=== PATIENT | female | born 2005 | race Two or more races ===

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

== ENCOUNTER 2025-08-31 10:46 | Outpatient (AMB) | payer BC, OTHER, SELFPAY ==
--- NOTE | 2025-08-31 10:47 | A.OFFPC_ITS ---
Vital Signs 08/31/25 10:53 Height 5 ft 1.5 in Weight 128 lb 2 oz BMI 23.8 BP 110/66 Blood Pressure Location Lt brachial Position Sitting Respiration 12 Pulse 93 Pulse Source Pulse Oximeter Temp 97.5 F Temp Source Oral Pulse Oximetry (%) 99 Oxygen Delivery Method Room Air Intake Visit Reasons: PERFUMER-Annual pe Intake Note: New patient to establish care and cpe. Inspection Engineer Required: No Allergies No Known Allergies Allergy (Verified 08/31/25 11:07) Medication List - Last Reconciled 08/31/25 [facility] No Known Home Meds Tobacco use date assessed: 08/31/25 Dental Screening Dental Screen Date: 08/31/25 Did you have a dental visit in the last 12 months?: No Did you have a dental problem in the last 6 months where you did not have access to dental care?: No Was dental information given to patient?: Patient has dentist HPI HPI Comments History of Present Illness Details 19 y/o F with Iron def anemia, nasal sara yps, allergic rhinitis, acne s/p adenoidectomy Fhx: Mom alive and well; Dad unsure; 2 sisters alive and well. MGM heart dz; MGF etoh; Unsure about paternal grandparents. 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 Limited Pedi records [facility] reviewed Iron Deficiency Anemia: - The patient has a past medical history of iron deficiency anemia. - Laboratory tests performed about a yea r ago revealed low hemoglobin levels. - She reports a history of heavy menstru al periods, which have recently become weblogic administrator without any intervention. - Her menstrual cycles are regular, occu rring every 28 to 32 days. Ear Discomfort: - The patient experienced an ear infecti on during the summer, for which she was treated at an urgent care facility with ear drops and antibiotics. - Since the infection, she has had a per sistent sensation of moisture in her ears. - She experienced transient hearing loss during the infection, which has since resolved. - The patient reports using earplugs. Acne: - The patient reports problems with body acne and has recently experienced more frequent breakouts on her face. - She requests a prescription for a topi bryon cream that her mother uses. 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 - Employment: Works at [employer]. - Sexual History: The patient is sexuall y active with men, is in a safe sexual relationship, and denies any concerns or symptoms of sexually transmitted infections. - Family status: The patient has no chil dren. Review of Systems - Constitutional: Denies weakness or syn cope during blood draws. - Eyes: Denies loss of vision or changes in vision. - HEENT: Reports a sensation of moisture in her ears and nasal stuffiness attributed to allergies. - Genitourinary: Reports regular menstru al periods that have become weblogic administrator recently. - Integumentary: Reports acne on her bod y and face. - Gastrointestinal: Reports normal bowel function. Physical Exam General: Well developed, well nourished, in no acute distress. Appears stated age. Head: Normocephalic, atraumatic. Eyes: Pupils are equal, round and reactive to light and accommodation. Conjunctivae are clear. Scleras nonicteric bilat. Vision grossly normal. Ears: TM intact bilat, EAC clear bilat, trace fluid behind L TM Nose: Large polyps noted on L, smaller on R likely due to significant allergies. Patent, without discharge. Neck: No carotid bruit bilat. Supple, no adenopathy or thyromegaly. Breast: Edu on SBE Lungs: Clear to auscultation bilaterally. No rales, rhonchi or wheeze noted. Good air flow in all eller. Heart: Regular rate and rhythm. No murmurs, click, rubs or gallops are noted. Abdomen: Bowel sounds present in all quadrants. The abdomen is soft, nontender, with no masses or organomegaly noted. No hernias are noted. : Deferred. 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 Extremities: No clubbing, cyanosis nor edema is noted. Neurologic: Gait and station normal. Cranial Nerves 2-12 intact. Motor strength grossly symmetrical and intact. No sensory loss. Balance normal. Skin: No rashes, ulcers, or lesions noted. Turgor is good. Skin color is good. Hair and nails are without abnormalities. Mild facial acne Psych: Normal eye contact, affect and mood appropriate, and normal interactions. Patient is alert and appropriate to context. Results Pending Medical Decision Making The patient is a 19-year-old female presenting to [facility] with a few specific concerns. Her primary complaint of ear moisture following a treated ear infection, coupled with the physical exam findings of fluid behind the tympanic membranes and large nasal polyps, is most consistent with eustachian tube dysfunction secondary to significant allergic rhinitis. The initial management will be a trial of intranasal Azelastine to manage the underlying allergies, which should alleviate the ear symptoms. If this approach fails, an ENT referral for polypectomy will be considered. Given her history of low hemoglobin and past heavy menses, it is prudent to re- evaluate for iron deficiency anemia, and labs have been ordered to assess her current status. The patient also requested treatment for body and facial acne, and a topical cream was prescribed with appropriate counseling on application and side effects, including photosensitivity. Comprehensive wellness labs were ordered to establish a baseline, and she received an influenza vaccine. The plan is for routine annual follow-up, with lab results and further communication to be handled via the patient portal. Plan Health Maintenance - The patient presented to [facility] with a complete physical exam. - An influenza vaccine was administered during the visit. - Wellness labs were ordered, including a diabetes screen, iron levels, cholesterol screen, urinalysis, thyroid function tests, B12, and vitamin D levels. - The patient was advised that she requi res annual physical examinations. - Instructions were given to sign up for the patient portal to access lab results and for communication. 1. Wellness Examination - A complete physical exam was conducted . - Ordered comprehensive wellness labs, i ncluding a diabetes screen, iron levels, cholesterol screen, urinalysis for kidney function, TSH, B12, and vitamin D. - Results will be provided via the [employer] portal. - The patient was instructed to schedule a follow-up visit in one year for an annual physical. 2. Allergic Rhinitis With Nasal Polyps - The patient's sensation of ear moistur e is attributed to eustachian tube dysfunction from allergic rhinitis, as evidenced by large nasal polyps on exam. - Prescribed Azelastine nasal spray to b e used once daily in each nostril. - Advised the patient that Azelastine is available [id number] if not covered by her insurance. - If symptoms persist, a referral to an ENT specialist will be made to consider polyp removal. 3. Iron Deficiency Anemia - Due to a history of low hemoglobin, ir on levels will be assessed as part of the scheduled lab work. - Follow-up will be arranged based on laboratory results. 4. Acne - Prescribed a topical cream for body an d facial acne. - Instructed the patient to apply the cr eam sparingly to affected areas at bedtime. - Counseled on the importance of washing the cream off in the morning to prevent sun-induced skin bleaching. 5. Influenza Vaccination - An influenza vaccine was administered during the visit. Patient Instructions - A prescription for Azelastine nasal sp ray has been sent to your pharmacy; use one spray in each nostril once a day to help with your ear and nose symptoms. - If your insurance does not cover the A zelastine prescription, you can purchase it over the counter. - A prescription for an acne cream has b een sent to your pharmacy. - Apply the acne cream in a thin layer o nly on the affected areas at bedtime. - You must wash the cream off in the mor arnel before going into the sun, as it can cause your skin to bleach. - You will receive a flu shot today befo re you leave. - Please sign up for our online patient portal using the email link you will receive today. - You can view your lab results and send me messages through the portal. - I will see you back in one year for yo ur next annual physical exam, unless any issues arise sooner. Consent Verbal consent was obtained from the patient for a complete physical examination and for venipuncture for routine wellness laboratory studies. The patient also provided verbal consent for the administration of the influenza vaccine. Patient was informed and verbally consented to the use of an ambient scribe for clinic note documentation during this visit. An additional 20 minutes was spent addressing the problem(s) noted at todays visit. This includes time spent before the visit reviewing the chart, time spent during the visit, and time spent after the visit on documentation reviewing laboratory results, diagnostic imaging, medications, performing a medically necessary evaluation, counseling on diagnoses, care coordination, ordering appropriate tests, ordering appropriate medications, review of tests performed by other providers, reporting test results with the patient, communication with other healthcare providers. [facility] Medical History (Updated 08/31/25 @ 11:27 by Kenya Carrillo [facility]) Iron deficiency anemia Surgical History (Updated 08/31/25 @ 10:57 by Trang Umana MA) H/O adenoidectomy Family History (Updated 08/31/25 @ 10:59 by Trang Umana MA) Mother No problems noted. Maternal Grandmother Cardiovascular disease Thyroid disorder Chronic mental illness Maternal Grandfather Cardiovascular disease Substance use disorder Chronic mental illness Social History (Updated 08/31/25 @ 10:56 by Trang Umana MA) Household Members: Family Both parents involved: Yes Caregiver staying overnight: No Housing: Apartment Are you a primary aged or disabled care worker to a significant other at home: No Do you presently have visiting nurse or other home services: No 75 years or older and lives alone: No Alcohol intake: never Patient Tobacco Use Status: Never used Tobacco e-Cigarette/Vaping Use: Never Used Second Hand Smoke Exposure: No Current occupational status: unemployed and student Cognitive needs: No Hearing needs: No Vision needs: No Questionnaire PHQ-9 Over the last 2 weeks, how often have you been bothered by any of the following problems? 1. Little interest or pleasure in doing things: not at all 2. Feeling down, depressed, or hopeless: not at all 3. Trouble falling or staying asleep, or sleeping too much: not at all 4. Feeling tired or having little energy: not at all 5. Poor appetite or overeating: not at all 6. Feeling bad about yourself - or that you are a failure or have let yourself or your family down: not at all 7. Trouble concentrating on things, such as reading the newspaper or watching television: not at all 8. Moving or speaking so slowly that other people could have noticed. Or the opposite - being so fidgety or restless that you have been moving around a lot more than usual: not at all 9. Thoughts that you would be better off or of hurting yourself in some way: not at all Total score: 0 Depression Screening Interpretation: Negative Depression Screening Done: Yes 15015 - PHQ-9 Billing: Yes Source: Developed by Drs. Jimi Shen, Mala Oates, Peter Massey and colleagues, with an educational lillian from [employer]. Thrive Questionnaire Date Thrive assessed: 08/31/25 I am a: Patient What is your living situation today?: I have a steady place to live Within the past 12 months, did the food you bought not last and you didn't have the money to get more?: Never true Within the past 12 months, did you worry whether your food would run out before you got money to buy more?: Never true Do you have trouble paying for medicines?: No Do you have trouble getting transportation to medical appointments?: No Do you have trouble paying your heating and electricity bill?: No Do you have trouble taking care of your child, family member or friend?: No Do you have trouble with day-to-day activities such as bathing, preparing meals, shopping, managing finances, etc.?: No Are you currently unemployed and looking for a job?: No Are you interested in more education?: No Please select the resources that you would like help with: None Currently or been in a relationship where the following occur: No concerns reported THRIVE Score: 0 AUDIT C Alcohol Use Questionnaire (AUDIT-C) 1. How often do you have a drink containing alcohol?: Never Total Score: 0 Score Reviewed/Action Taken: Yes JOSE MARIA-7 AMB Questionnaire JOSE MARIA-7 Date JOSE MARIA - 7 assessed: 08/31/25 Feeling nervous, anxious, or on edge: 0 = Not at all Not being able to stop or control worryin = Not at all Worrying too much about different things: 0 = Not at all Trouble relaxin = Not at all Being so restless that it is hard to sit still: 0 = Not at all Becoming easily annoyed or irritable: 0 = Not at all Feeling afraid as if something awful might happen: 0 = Not at all Total JOSE MARIA-7 score (0-4 normal; 5-9 mild; 10-14 moderate; 15-21 severe): 0 Source: Developed by Drs. Jimi Shen, Mala Oates, Peter Massey and colleagues, with an educational lillian from [employer]. JOSE MARIA-7 Assessment Billing JOSE MARIA-7 Assessment Tool: JOSE MARIA-7 Assessment 33652 Physical exam (Primary Care) Vital Signs: Last Vital Signs Temp 97.5 F 08/31/25 10:53 Pulse 93 08/31/25 10:53 Resp 12 08/31/25 10:53 BP 110/66 08/31/25 10:53 Pulse Ox 99 08/31/25 10:53 Oxygen Delivery Method Room Air 08/31/25 10:53 BMI result Body Mass Index 23.8 Tobacco/Smoking Status: Tobacco use Status Tobacco use date assessed 08/31/25 08/31/25 10:49 Patient Tobacco Use Status Never used Tobacco 08/31/25 10:56 e-Cigarette/Vaping Use Never Used 08/31/25 10:56 PHQ-9: PHQ-9 Score PHQ-9: Total score 0 08/31/25 11:07 Depression Screening Interpretation: Negative Thrive Assessment: Date of Thrive Assessment Date Thrive assessed 08/31/25 08/31/25 10:49 Currently or been in a relationship where the following occur: No concerns repo rted Office Procedures Flu Questionnaire Does the patient have a severe egg allergy?: No Does the patient have severe life threatening allergies?: No Does the patient have a fever or illness today?: No Has the patient ever had Guillain-[place] Syndrome?: No Has the patient ever had any past reaction to a flu shot?: No Immunizations Fluarix [id number] (PF) 45 mcg (15 mcg x 3)/0.5 mL IM syringe Performing Provider: KOURTNEY Cintron Performing Location: [facility] Family Medicine Administered by: Trang Umana MA on 08/31/25 11:26 Dose Route Admin Location Dispensed Lot Number Expiration Date [facility] Dot Net [employer] 0.5 mL IM Right Deltoid 0.5 mL [id number] 04/18/26 [id number] [employer] VIS Given Date VIS Provided VIS Publication Date 08/31/25 Single Vaccine 24 Eligibility Eligibility Date Funding Source Not [facility] Eligible 08/31/25 Private Coding Level of Care Code New Pt Level 2 (45787) New Pt Prev Care 18-39yr(43946 Diagnoses Encounter to establish care Z76.89 Influenza vaccination administered at current visit Z23 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.0 Iron deficiency anemia type: chronic blood loss Laboratory exam ordered as part of routine general medical examination Z00.00 Nasal polyps J33.9 Non-seasonal allergic rhinitis due to other allergic trigger J30.89 Allergic rhinitis seasonality: non-seasonal Allergic rhinitis trigger: other Recurrent acute allergic otitis media of left ear H65.115 Chronicity: acute Recurrence: recurrent Adult general medical exam Z00.00 Additional Codes JOSE MARIA-7 Assessment Billing - JOSE MARIA-7 Assessment Tool: JOSE MARIA-7 Assessment 45553 ([id number]) PHQ-9 - 78317 - PHQ-9 Billing: Yes ([id number]) Assessment & Plan Assessment & Plan (1) Encounter to establish care: Code(s): Z76.89 - Persons encountering health services in other specified circumstances Category: Medical (2) Influenza vaccination administered at current visit: Onset Date: ~08/31/25 Code(s): Z23 - Encounter for immunization Category: Medical (3) Iron deficiency anemia: Code(s): D50.9 - Iron deficiency anemia, unspecified Category: Medical Qualifiers: Iron deficiency anemia type: chronic blood loss Qualified Code(s): D50.0 - Iron deficiency anemia secondary to blood loss (chronic) (4) Laboratory exam ordered as part of routine general medical examination: Code(s): Z00.00 - Encounter for general adult medical examination without abnormal findings Category: Medical (5) Nasal polyps: Code(s): J33.9 - Nasal polyp, unspecified Category: Medical (6) Allergic rhinitis: Code(s): J30.9 - Allergic rhinitis, unspecified Category: Medical Qualifiers: Allergic rhinitis seasonality: non-seasonal Allergic rhinitis trigger: other Qualified Code(s): J30.89 - Other allergic rhinitis (7) Allergic otitis media of left ear: Code(s): H65.92 - Unspecified nonsuppurative otitis media, left ear Qualifiers: Chronicity: acute Recurrence: recurrent Qualified Code(s): H65.115 - Acute and subacute allergic otitis media (mucoid) (sanguinous) (serous), recurrent, left ear (8) Adult general medical exam: Onset Date: ~08/31/25 Code(s): Z00.00 - Encounter for general adult medical examination without abnormal findings Category: Medical Plan . Orders: Orders Influenza [id number] Immunization Today Z23 - Encounter for immunization Complete Blood Count no Diff Today Z00.00 - Encounter for general adult medical examination without abnormal findings Comprehensive Met. Panel Today Z00.00 - Encounter for general adult medical examination without abnormal findings Ferritin Today Z00.00 - Encounter for general adult medical examination without abnormal findings IRON PROFILE Today Z00.00 - Encounter for general adult medical examination without abnormal findings Hemoglobin A1c Today Z00.00 - Encounter for general adult medical examination without abnormal findings Lipid Panel Today Z00.00 - Encounter for general adult medical examination without abnormal findings Microalbumin, Random (w Creat) Today Z00.00 - Encounter for general adult medical examination without abnormal findings TSH reflex Free T4 Today Z00.00 - Encounter for general adult medical examination without abnormal findings Vitamin B12 and Folate Today Z00.00 - Encounter for general adult medical examination without abnormal findings Vitamin D 25-OH Total Today Z00.00 - Encounter for general adult medical examination without abnormal findings Medications: New azelastine (Astepro Allergy) administer into each nostril 1 spray intranasal BEDTIME 30 mL 2RF tretinoin 0.025% 1 appl topical BEDTIME 45 grams 2RF Patient Instructions: Patient Instructions - A prescription for Azelastine nasal spray has been sent to your pharmacy; use one spray in each nostril once a day to help with your ear and nose symptoms. - If your insurance does not cover the Azelastine prescription, you can purchase it over the counter. - A prescription for an acne cream has been sent to your pharmacy. - Apply the acne cream in a thin layer only on the affected areas at bedtime. - You must wash the cream off in the morning before going into the sun, as it can cause your skin to bleach. - You will receive a flu shot today before you leave. - Please sign up for our online patient portal using the email link you will receive today. - You can view your lab results and send me messages through the portal. - I will see you back in one year for your next annual physical exam, unless any issues arise sooner. Walk-In Care (Urgent Care): We Make it Easy Walk-in for urgent medical issues such as: ? Seasonal Allergies ? Insect Bites ? Cough ? Diarrhea ? Acute Asthma Attacks ? Back, Knee or Joint Pain ? Ear Infection ? Fever without a Rash ? Headaches ? Nausea ? [place], Rash or Skin Irritation ? Sore Throat ? Sports Physicals ? Vomiting Most insurances are accepted. Patients do not need to be part of the [facility] to seek care at the walk-in clinic. Locations [address] [place] [address] Open Friday through Friday 8am-5pm *Hours may vary due to staffing availability. To confirm Walk-In Care hours please call. [address] [facility] , [place] [address] ? [phone] [facility] Walk-In Care in [place] provides services to ages 18 and over. Open Friday-Friday: 7 a.m. to 5 p.m. and Friday: 9 a.m. to 3 p.m.* *Hours may vary due to staffing availability. To confirm Walk-In Care hours in [place], please call [phone]. [address] [place] [address] ? [phone] [facility] Walk-In Care in [place] provides services to ages 12 and over. Open Friday-Friday: 8 a.m. to 5 p.m. Hours may vary due to staffing availability. To confirm Walk-In Care hours in [place], please call [phone]. LABORATORY SERVICES: [facility] Lab ? Primary Location [address] [place] [address] Friday through Friday 6:00 AM ? 5:00 PM Friday 7:00 AM ? 11:00 AM* [phone] The [facility] Lab is centrally located near the front entrance of the [facility] for easy outpatient access. Convenient parking is provided for outpatients. *Hours may vary due to staffing availability. To confirm Laboratory hours for any location, please call [phone]. Offsite Location For your convenience, we offer offsite laboratory draw stations at the following locations: [address] [place] [address] ? [facility] [address], [address], [place] Friday through Friday 7:30 AM ? 1:00 PM* [phone] *Hours may vary due to staffing availability. To confirm Laboratory hours for an y location, please call [phone]. [place] [address] Friday through Friday 6:00 AM ? 3:30 PM* Friday 6:30 AM ? 3 PM* [phone] *Hours may vary due to staffing availability. To confirm Laboratory hours for any location, please call [phone]. [address] [facility] Friday through Friday 7:30 AM ? 4:00 PM* [phone] *Hours may vary due to staffing availability. To confirm Laboratory hours for any location, please call [phone]. [facility] Friday through 9:00 AM ? 4:00 PM* *Hours may vary due to staffing availability. To confirm Laboratory hours for any location, please call [phone]. Appointments are not necessary. Walk-ins are welcome. Like all the departments throughout the [facility], our Lab undergoes frequent reviews to ensure the quality and accuracy of test results, and our staff takes special pride in its status as a nationally accredited facility. Patient Portal: [facility] ONE PATIENT. ONE RECORD. BETTER CARE. [facility] has a fully integrated, cutting- edge mobile electronic health information system that has revolutionized the way we care for our patients and manage our organization. This system improves communication and coordination enabling us to provide safe, higher-quality care, and an overall positive experience for staff and patients. Our first priority, as always, is to deliver the highest quality care possible. The system is running in the background supporting that priority. This portal is for all [facility] and [facility] services and practices. If you are experiencing any technical difficulties with enrolling or logging into the Patient Portal please complete the [facility] Patient Portal Technical Support Form. [facility] now offers a new secure on-line interactive tool for patients to review their health information ? ?Patient Portal. This interactive web portal will enable patients and their families to take an active role in their care by providing easy, secure access to their health information via the internet. The Patient Portal provides patients with instant access to their health information, including laboratory results, medications, allergies, demographic information, visit history, and more. In addition to managing their own care, parents and health care proxies with authorized consent will appreciate the ability to access the records of those individuals for whom they provide care. Please note: if you wish to gain access (Proxy) to another patient?s portal, you will be required to come to the Medical Records Department in person at [facility]. Both the patient giving proxy access and the proxy will need to provide photo identification and complete the appropriate authorization. The Patient Portal also allows track their appointments online. The [facility] Patient Portal also saves patients time by allowing them to submit updates to their demographic and contact information prior to their visits. Portal email notifications will also alert patients to any new activity on their portal, such as test results and new appointments. In order to initially enroll in the [facility] Patient Portal, you will need to enter some required information including the following: * your [facility] Medical Record number * your personal home email address * name * date of Please note: In order to enroll in the [facility] Patient Portal, we need to have your email address on file in your electronic medical record. ?The email address needs to be specific for one person (yourself) in order for your Portal enrollment to be successful. ?You can update your email address in person with our Registration staff when you are registering for a hospital visit. ?Otherwise, you will need to come to the Health Information Management (Medical Records) Department at [facility]. ?We are open from Friday ? Friday from 7:30 a.m. ? 4:30 p.m. ?You will be required to present a photo id. Once you have successfully enrolled in the Patient Portal, you will receive a one-time user id and password for the Portal, sent to your email address. ?This will allow you to log into the Patient Portal within 99 hrs and reset your own logon id and password, and define personal security questions. ?Once your permanent login and password have been set, you can log into the [facility] Patient Portal at any time via the blue button above or from the Portal Logon button on any page of the [facility] website. [facility] encourage all of our patients to enroll in Patient Portal as it presents a valuable opportunity for patients and their families to actively participate in their care and stay healthy Welcome to [facility]. ?We look forward to working with you. Health screenings for women You should visit your health care provider from time to time, even if you are healthy. The purpose of these visits is to: Screen for medical issues Assess your risk for future medical problems Encourage a healthy lifestyle Update vaccinations and other preventive care services Help you get to know your provider in case of an illness Information Even if you feel fine, you should still see your provider for regular checkups. These visits can help you avoid problems in the future. For example, the only way to find out if you have high blood pressure is to have it checked regularly. High blood sugar and high cholesterol levels also may not have any symptoms in the early stages. A simple blood test can check for these conditions. There are specific times when you should see your provider or receive specific health screenings. The [place] Preventive Services Task Force publishes a list of recommended screenings. Below are screening guidelines for women ages 18 to 39. BLOOD PRESSURE SCREENING Your blood pressure should be checked at least once every 3 to 5 years if: Your blood pressure is in the normal range (top number less than 120 mm Hg and bottom number less than 80 mm Hg) You don't have risk factors for high blood pressure Ask your provider if you need your blood pressure checked more often if: The top number is 120 to 129 mm Hg or the bottom number is 70 to 79 mm Hg You have diabetes, heart disease, kidney problems, are overweight, or have certain other health conditions You have a first-degree relative with high blood pressure You are Black You had high blood pressure during a If the top number is 130 mm Hg or greater or the bottom number is 80 mm Hg or greater, this is considered stage 1 hypertension. Schedule an appointment with your provider to learn how you can reduce your blood pressure. Watch for blood pressure screenings in your area. Ask your provider if you can stop in to have your blood pressure checked. BREAST CANCER SCREENING Experts do not agree about the benefits of breast self-exams in finding breast cancer or saving lives. Talk to your provider about what is best for you. A screening mammogram is not recommended for most women under age 40. Your provider may discuss and recommend mammograms, MRI scans, or ultrasounds if you have an increased risk for breast cancer, such as: A mother or sister who had breast cancer at a young age (most often starting screening earlier than the age the close relative was diagnosed) You carry a high-risk genetic marker CERVICAL CANCER SCREENING Cervical cancer screening should start at age 21 years unless your provider adv ises otherwise. After the first test: Women ages 21 through 29 should have a Pap test every 3 years. Exoprts do not agree on whether HPV testing is recommended for this age group. Women ages 30 through 65 should be screened with either a Pap test every 3 years or the HPV test every 5 years or both tests every 5 years (called cotesting ). Women who have been treated for precancer (cervical dysplasia) should continue to have Pap tests for 20 years after treatment or until age 65, whichever is longer. If you have had your uterus and cervix removed (total hysterectomy), and you have not been diagnosed with cervical cancer or precancer (high grade cervical neoplasia), you do not need cervical cancer screening. CHOLESTEROL SCREENING Cholesterol screening should begin at: Age 45 for women with no known risk factors for coronary heart disease Age 20 for women with known risk factors for coronary heart disease Repeat cholesterol screening should take place: Every 5 years for women with normal cholesterol levels More often if changes occur in lifestyle (including weight gain and diet) More often if you have diabetes, heart disease, kidney problems, or certain other conditions DIABETES SCREENING You should be screened for diabetes starting at age 35 and then repeated every 3 years if you have no risk factors for diabetes. Screening may need to start earlier and be repeated more often if you have other risk factors for diabetes, such as: You have a first degree relative with diabetes. You are overweight or have obesity. You have high blood pressure, prediabetes, or a history of heart disease. Screening for diabetes should be done if you are planning to become and you are overweight and have other risk factors such as high blood pressure. DENTAL EXAM Go to the dentist once or twice every year for an exam and cleaning. Your dentist will evaluate if you need more frequent visits. EYE EXAM Have an eye exam every 5 to 10 years before age 40. If you have vision problems, have an eye exam every 2 years or more often if recommended by your provider. You should have an eye exam that includes an examination of your retina (back of your eye) at least every year if you have diabetes. IMMUNIZATIONS Commonly needed vaccines include: Flu shot: get one every year. COVID-19 vaccine: ask your provider what is best for you. Tetanus-diphtheria and acellular pertussis (Tdap) vaccine: have one at or after age 19 as one of your tetanus-diphtheria vaccines if you did not receive it as an adolescent. Tetanus-diphtheria: have a booster (or Tdap) every 10 years. Varicella vaccine: receive 2 doses if you never had chickenpox or the varicella vaccine. Hepatitis B vaccine: receive 2, 3, or 4 doses, depending on your exact circumstances. Measles, mumps, and rubella (MMR) vaccine: receive 1 to 2 doses if you are not already immune to MMR. Your provider can tell you if you are immune. Ask your provider about the human papillomavirus (HPV) vaccine if: You have not received the HPV vaccine in the past You have not completed the full vaccine series (you should catch up on this shot) Ask your provider if you should receive other immunizations if you have certain health problems that increase your risk for some diseases such as pneumonia. INFECTIOUS DISEASE SCREENING Women who are sexually active should be screened for chlamydia and gonorrhea up until age 25. Women 25 years and older should be screened for chlamydia and gonorrhea if at high risk. Screening for hepatitis C: All adults ages 18 to 79 should get a one-time test for hepatitis C. people should be screened at every . Screening for human immunodeficiency virus (HIV): All people ages 15 to 65 should get a one-time test for HIV. Depending on your lifestyle and medical history, you may also need to be screened for infections such as syphilis and HIV, as well as other infections. PHYSICAL EXAM All adults should visit their provider from time to time, even if they are healthy. The purpose of these visits is to: Screen for disease Assess your risk of future medical problems Encourage a healthy lifestyle Update your vaccinations and other preventive care services Maintain a relationship with a provider in case of an illness Your height, weight, and BMI should be checked at every exam. During your exam, your provider may ask you about: Depression and anxiety Diet and exercise Alcohol and tobacco use Safety issues, such as using seat belts, smoke detectors, and intimate partner violence Your medicines and risk for interactions SKIN SELF-EXAM Your provider may check your skin for signs of skin cancer, especially if you're at high risk, such as if you: Have had skin cancer before Have close relatives with skin cancer Have a weakened immune system OTHER SCREENING Talk with your provider about colon cancer screening if you have a strong family history of colon cancer or polyps, or if you have had inflammatory bowel disease or polyps yourself. Routine bone density screening of women under 40 is not recommended.
[2025-08-31 10:53] VITALS: BP 110/66; PULSE 93; RESP 12; TEMP 36.4; O2SAT 99; BMI 23.8
--- OUTSIDE RECORDS SUMMARY | 2025-08-31 13:00 | XMS_ITS | Encounter Summary ---
Author Organization [facility] Address [address] [place] [id number] Phone Care Team Providers Care Personnel Quality Assurance Auditor Name Role Phone Dian Santacruz AUTOMOTIVE ENGINEERING TECHNICIAN Primary Care Provider Sharri rizo Encounter Details Date Type Department Care Team (Late st Contact Info) Description 11/18/2011 Documentation EM Family Medicine [facility] [place] [address] Family Medicine, Physician [facility] [place] [id number] Social History Tobacco Use Types Packs/Day Years Used Date Smoking Tobacco: Never Assessed Comments Unknown Sex and Gender Information Value Date Recorded Sex Assigned at Not on file Legal Sex Female 4:46 PM EDT Gender Identity Not on file Sexual Orientation Not on file documented as of this encounter Plan of Treatment Not on file documented as of this encounter Visit Diagnoses Not on filedocumented in this encounter Care Teams Personnel Quality Assurance Auditor Relationship Specialty Start Date End Date Dian Santacruz NP PCP - General 05/30/17 01/30/23 documented as of this encounter
--- OUTSIDE RECORDS SUMMARY | 2025-08-31 13:00 | XMS_ITS | Encounter Summary ---
Author Organization [facility] Address [address] [place] [address] Phone Care Team Providers Care Pricing Director Name Role Phone Dian Santacruz WORM RAISER Primary Care Provider Sharri rizo Encounter Details Date Type Department Care Team (Late st Contact Info) Description 04/27/2013 Documentation EM Family Medicine [facility] [place] [address] Family Medicine, Physician [facility] [place] [address] Social History Tobacco Use Types Packs/Day Years [...] on filedocumented in this encounter Care Teams Pricing Director Relationship Specialty Start Date End Date Dian Santacruz NP PCP - General 05/30/17 01/30/23 documented as of this encounter
--- OUTSIDE RECORDS SUMMARY | 2025-08-31 13:00 | XMS_ITS | Encounter Summary ---
Author Organization [facility] Address [address] [place] [address] Phone Care Team Providers Care Autopsy Pathologist Name Role Phone Dian Santacruz PRINTING BINDERY ASSISTANT Primary Care Provider Sharri rizo Encounter Details Date Type Department Care Team (Late st Contact Info) Description 06/12/2011 Documentation EM Family Medicine [facility] [place] [address] Family Medicine, Physician [facility] [place] [address] Social History Tobacco Use Types Packs/Day Years [...] on filedocumented in this encounter Care Teams Autopsy Pathologist Relationship Specialty Start Date End Date Dian Santacruz NP PCP - General 05/30/17 01/30/23 documented as of this encounter
--- OUTSIDE RECORDS SUMMARY | 2025-08-31 13:00 | XMS_ITS | Clinical Summary ---
Author Organization [facility] Address [address] [place] [address] Phone Care Team Providers Care Arterial Embalmer Name Role Phone Unavailable Primary Care Provider Unavailabl e Immunizations Immunization Administration Dates Next Due DTaP 2008, 6,05/21/2005,03/20/2005, 5 Hep A, ped/adol 08/25/2006,02/21/2006 Hep B, ped/adol 05/21/2005,01/18/2005,2004 Hib (HbOC) 02/21/2006,03/20/2005,01/18/2005 IPV 2008,05/21/2005,03/20/2005 ,01/18/2005 Influenza Split 09/09/2012, 1,08/04/2009,08/25/2006, 6 MMR 2008,12/11/2005 Pneumococcal Conjugate 02/21/2006,05/21/2005,10/2004,01/18/2005 Varicella 2008,12/11/2005 Family History Relation Name Status Comments Mother Alive Mother: Alive a nd well Other Family history of Asthma, Family history of Diabetes mellitus, Family history of Migraines Sister Alive Sister: Alive a nd well Social History Tobacco Use Types Packs/Day Years Used Date Smoking Tobacco: Never Assessed Comments Unknown Sex and Gender Information Value Date Recorded Sex Assigned at Not on file Legal Sex Female 4:46 PM EDT Gender Identity Not on file Sexual Orientation Not on file Last Filed Vital Signs Vital Sign Reading Time Taken Comments Blood Pressure 100/64 11/03/2012 12:00 AM EST Pulse - - Temperature 38.7 C (101.7 F) 11/03/2012 12:00 AM EST Respiratory Rate - - Oxygen Saturation - - Inhaled Oxygen Concentration - - Weight 29 kg (64 lb) 11/03/2012 12:00 AM EST Height 128.3 cm (4' 2.5 ) 11/03/2012 12:00 AM ES T Body Mass Index 17.64 11/03/2012 12:00 AM EST Plan of Treatment Health Maintenance Due Date Last Done Comments DTaP,Tdap,and Td Vaccines (6 - Tdap) 2015 2008, 02/21/2006, 05/21/2005, Additional history exists HPV Vaccines (1 - 3-dose series) 2019 Men B Vaccine (1 of 2 - Standard) 2020 Influenza Vaccines (#1) 2025 09/09/20, 06/11/2011, 08/04/2009, Additional history exists COVID-19 Vaccine ( - 2024- season) 2025 Hepatitis B Vaccines Completed 05/21/2005, 01/18/2005, 2004 HIB Vaccines Completed 02/21/2006, 10/2004, 01/18/2005 Pneumococcal Vaccine Completed 02/21/2006, 05/21/2005, 03/20/2005, Additional history exists Hepatitis A Vaccines Completed 08/25/2006, 02/22/20 IPV Vaccines Completed 2008, 11/2004, 03/20/2005, Additional history exists MMR Vaccines Completed 2008, 12/11/2005 Varicella Vaccines Completed 2008, 12/11/2005 Meningococcal Vaccine Aged Out No umer jodee eligible based on patient's age to complete this topic
--- OUTSIDE RECORDS SUMMARY | 2025-08-31 13:00 | XMS_ITS | Encounter Summary ---
Author Organization [facility] Address [address] [place] [address] Phone Care Team Providers Care Mailroom Personnel Name Role Phone Dian Santacruz DIESEL STATIONARY ENGINEER Primary Care Provider Sharri rizo Encounter Details Date Type Department Care Team (Late st Contact Info) Description 07/17/2011 Documentation EM Family Medicine [facility] [place] [address] Family Medicine, Physician [facility] [place]where [place], [place] [id number] Social History Tobacco Use Types Packs/Day Years [...] on filedocumented in this encounter Care Teams Mailroom Personnel Relationship Specialty Start Date End Date Dian Santacruz NP PCP - General 05/30/17 01/30/23 documented as of this encounter
--- OUTSIDE RECORDS SUMMARY | 2025-08-31 13:00 | XMS_ITS | Encounter Summary ---
Author Organization [facility] Address [address] [place] [phone] Phone Care Team Providers Care Tool Room Lathe Operator Name Role Phone Dian Santacruz NP Primary Care Provider Sharri rizo Encounter Details Date Type Department Care Team (Late st Contact Info) Description 06/05/2017 Conversion Encounter [facility] - [address] [id number] Social History Tobacco Use Types Packs/Day Years [...] on filedocumented in this encounter Care Teams Tool Room Lathe Operator Relationship Specialty Start Date End Date Dian Santacruz NP PCP - General 05/30/17 01/30/23 documented as of this encounter
--- OUTSIDE RECORDS SUMMARY | 2025-08-31 13:00 | XMS_ITS | Encounter Summary ---
Author Organization [facility] Address [address] [place] [address] Phone Care Team Providers Care Director Of Product Development Name Role Phone Dian Santacruz CIRCUS TRAIN SUPERVISOR Primary Care Provider Sharri rizo Encounter Details Date Type Department Care Team (Late st Contact Info) Description 08/23/2011 Documentation EM Family Medicine [facility] [place] [address] Family Medicine, Physician [facility] [place], [place] [phone] Social History Tobacco Use Types Packs/Day Years [...] on filedocumented in this encounter Care Teams Director Of Product Development Relationship Specialty Start Date End Date Dian Santacruz NP PCP - General 05/30/17 01/30/23 documented as of this encounter
--- OUTSIDE RECORDS SUMMARY | 2025-08-31 13:00 | XMS_ITS | Encounter Summary ---
Author Organization [facility] Address [address] [place] [address] Phone Care Team Providers Care Vice President Media Relations Name Role Phone Dian Santacruz PASTRY WRAPPER Primary Care Provider Sharri rizo Encounter Details Date Type Department Care Team (Late st Contact Info) Description 08/23/2011 Documentation EM Family Medicine [facility] [place] [address] Family Medicine, Physician [facility] [place], [place] [address] Social History Tobacco Use Types Packs/Day Years [...] on filedocumented in this encounter Care Teams Vice President Media Relations Relationship Specialty Start Date End Date Dian Santacruz NP PCP - General 05/30/17 01/30/23 documented as of this encounter
--- OUTSIDE RECORDS SUMMARY | 2025-08-31 13:00 | XMS_ITS | Encounter Summary ---
Author Organization [facility] Address [address] [place] [address] Phone Care Team Providers Care Artistic Director Name Role Phone Dian Santacruz ASSISTANT HOUSEKEEPING MANAGER Primary Care Provider Sharri rizo Encounter Details Date Type Department Care Team (Late st Contact Info) Description 06/12/2011 Documentation EM Family Medicine [facility] [place] [address] Family Medicine, Physician [facility] [place], [place] [address] Social History Tobacco Use Types Packs/Day Years [...] on filedocumented in this encounter Care Teams Artistic Director Relationship Specialty Start Date End Date Dian Santacruz NP PCP - General 05/30/17 01/30/23 documented as of this encounter
--- OUTSIDE RECORDS SUMMARY | 2025-08-31 13:00 | XMS_ITS | Encounter Summary ---
Author Organization [facility] Address [address] [place] [address] Phone Care Team Providers Care Undercover Cop Name Role Phone Dian Santacruz RESISTANCE BRAZER Primary Care Provider Sharri rizo Encounter Details Date Type Department Care Team (Late st Contact Info) Description 09/15/2012 Documentation EM Family Medicine [facility] [place] [address] Family Medicine, Physician [facility] [place] [address] Social History Tobacco Use Types Packs/Day Years [...] on filedocumented in this encounter Care Teams Undercover Cop Relationship Specialty Start Date End Date Dian Santacruz NP PCP - General 05/30/17 01/30/23 documented as of this encounter
== END 2025-08-31 11:28 | disposition home or self-care (01) ==
LOC: HO.HMCFM 10:46
PROVIDERS: PCP Nurse Practitioner Family; Visit Provider Nurse Practitioner Family
DX: Z00.00 Encounter for general adult medical examination without abnormal findings (principal); D50.0 Iron deficiency anemia secondary to blood loss (chronic); J30.9 Allergic rhinitis, unspecified; J33.9 Nasal polyp, unspecified; L70.9 Acne, unspecified; Z23 Encounter for immunization; Z86.19 Personal history of other infectious and parasitic diseases

== ENCOUNTER 2025-08-31 10:46 | Outpatient (REF) | payer OTHER, SELFPAY ==
[2025-08-31 14:17] LABS: Hematocrit 35.6 % (37.0-47.0); Hemoglobin 11.8 g/dl (12.0-16.0); Mean Corpuscular HGB Conc 33.1 g/dl (31.0-35.0); Mean Corpuscular Hemoglobin 29.8 pg (27.0-33.0); Mean Corpuscular Volume 89.9 fL (80.0-98.0); NRBC Abs Auto 0.000 X10*3/uL (0.0-0.012); NRBC Pct Auto 0.0 /100WBC (0.0-0.2); Platelet Count 221 X10*3/uL (160-400); Red Blood Count 3.96 X10*6/uL (4.20-5.50); White Blood Count 6.8 X10*3/uL (4.8-10.8)
[2025-08-31 14:37] LABS: Alanine Aminotransferase 13 U/L (0-31); Albumin Level 5.0 g/dL (3.5-5.0); Alkaline Phosphatase 41 U/L (39-117); Anion Gap 9 (12-20); Aspartate Amino Transferase 23 U/L (5-31); Blood Urea Nitrogen 10 mg/dL (9-16); Calcium 9.7 mg/dL (8.4-10.2); Carbon Dioxide 26 mmol/L (22-29); Chloride 106 mmol/L (96-108); Cholesterol 136 mg/dL (<200); Estimated Glomerular Filt Rate > 60; HDL Cholesterol 61 mg/dL (>40); Iron 62 mcg/dL (30-160); Percent Iron Saturation 19 % (15-50); Potassium 3.9 mmol/L (3.3-5.1); Sodium 137 mmol/L (135-145); Total Iron Binding Capacity 318 mcg/dL (228-428); Total Protein 7.8 g/dL (6.5-8.0); Triglycerides 43 mg/dL (<150); Unsaturated Iron Binding 256 ug/dL
[2025-08-31 14:38] LABS: Hemoglobin A1C 61.5685 umol/L
[2025-08-31 14:55] LABS: Ferritin 9 ng/mL (10-122)
[2025-08-31 15:03] LABS: Folate 10.0 ng/mL (> or = 4.0); Vitamin B12 356 pg/mL (200-900)
[2025-08-31 15:23] LABS: Microalbum/Creatinine Ratio Ur 11.0 ug/mg cr (<30)
== END 2025-08-31 10:47 | disposition home or self-care (01) ==
LOC: HO.WFDLDS 10:46
PROVIDERS: PCP Nurse Practitioner Family; Visit Provider Nurse Practitioner Family
DX: Z00.00 Encounter for general adult medical examination without abnormal findings (principal); Z23 Encounter for immunization; D50.0 Iron deficiency anemia secondary to blood loss (chronic); J33.9 Nasal polyp, unspecified; J30.89 Other allergic rhinitis; H60-H95 Diseases of the ear and mastoid process; Z76.89 Persons encountering health services in other specified circumstances
CPT/HCPCS: 36415; 80053; 80061; 82043; 82306; 82570; 82607; 82728; 82746; 83036; 83540; 84443; 85027; 90471; 90656; 96127